=== PATIENT | female | born 1985 ===

== ENCOUNTER 2017-03-25 09:26 | Day surgery (SDC) | payer OTHER ==
[2017-03-20 20:14] VITALS: BMI 21.9
[2017-03-25] MEDS ORDERED: Propofol 10 mg/ml Inj (20 ML) ONE (10:33)
[2017-03-25] MEDS ORDERED: Lactated Ringer's 1,000 ML IV SCH (10:39)
[2017-03-25] MEDS ORDERED: Midazolam 2 MG/2 ML VIAL ONE (10:41)
[2017-03-25 12:08] VITALS: BP 126/78; PULSE 83; RESP 18; TEMP 98.1; O2SAT 100
== END 2017-03-25 13:00 | disposition home or self-care (01) ==
LOC: ENDO 09:26
PROVIDERS: ATTEND Internal Medicine Gastroenterology
DX: K29.50 Unspecified chronic gastritis without bleeding (principal); B96.81 Helicobacter pylori [H. pylori] as the cause of diseases classified elsewhere; K31.84 Gastroparesis; R10.12 Left upper quadrant pain
CPT/HCPCS: 43239; 88305; 88342; J2001; J2250; J2704; J3010; J7040; J7120

== ENCOUNTER 2019-02-28 08:03 | Outpatient (CLI) | payer OTHER, BC | END 2019-02-28 08:04 | disposition home or self-care (01) | LOC: RAD 08:03 ==